=== PATIENT | female | born 1955 | race Caucasian/White ===

== ENCOUNTER 2023-09-21 08:55 | Day surgery (SDC) | payer MEDICARE ==
[2023-09-21] MEDS ORDERED: Depo-Medrol 40 MG/ML IM ONE (08:56)
[2023-09-21] MEDS ORDERED: BUPIVACAINE 0.5% VIAL IJ ONE (08:56)
[2023-09-21] MEDS ORDERED: Lactated Ringers 1,000 ML IV ONE (11:18)
[2023-09-21] MEDS ORDERED: DIPRIVAN 200 MG/20 ML IV ONE (12:01)
[2023-09-21] MEDS ORDERED: Xylocaine-Mpf 2% 5 Ml Vial ONE (12:02)
--- NOTE | 2023-09-21 13:20 | XRAY ---
Indication: Left SI joints and left hip injection. Intraoperative fluoroscopy provided for 33 seconds. 3 digital spot images submitted for interpretation demonstrates posterior needle tip projecting over the expected left SI joint. Second needle tip lateral to the left femur neck. Small amount of contrast injected for both needle tip placement. Correlate with intraoperative findings/report.
--- NOTE | 2023-09-21 13:25 | XRAY ---
33 seconds of fluoroscopy was used in surgery for a left sacroiliac joint and intra-articular hip injection.
== END 2023-09-21 12:30 | disposition home or self-care (01) ==
LOC: SDC-PAIN 08:55
PROVIDERS: ATTEND Psychiatry & Neurology Pain Medicine
DX: M46.1 Sacroiliitis, not elsewhere classified (principal); E11.9 Type 2 diabetes mellitus without complications
CPT/HCPCS: 20610; 27096; 73501; 76942; 77002; 82947; G0260; J1010; J2704; Q9966